=== PATIENT | female | born 1935 | race Caucasian/White ===

== ENCOUNTER 2016-09-11 12:28 | Emergency (ER) | payer OTHER ==
[~2016-09-11] VITALS: Ht 165.1 cm; Wt 69.4 kg
[~2016-09-11 12:28] MED LIST: ACETAMINOPHEN325 M1 PO; APAP500 PO; APAP650 PO; ASCORBIC ACID250 MG PO; ASPIRIN81 M2 PO; ATENOLOL 25 MG25 M1 PO; CVS FISH OIL 11 EAC3 PO; DOXYCYCLINE 10100 MG PO; FISH OIL 1,0001 EAC8 PO; FOLIC ACID 40400 MCG PO; GALZIN50 MG PO; GLUCOSAMINE &1 EAC1 PO; HYDRALAZINE 2525 MG PO; HYDROCODON-ACE1 EAC7 PO; HYDROCODON-ACE1 EAC8 PO; LOTREL 5-20 MG1 EACH PO; LUTEIN6 MG PO; LYRICA150 MG PO; LYRICA20 MG/1 ML PO; MEDROLDOSEPACK PO; MELOXICAM7.5 MG PO; MOBIC15 MG PO; NORCO 10-325 T1 EACH PO; NORCO 5-325 TA1 EACH PO; NORCO 7.5-3251 EACH PO; ODORLESS GARLI500 MG PO; OXYCODONE-ACET1 EACH PO; PERCOCET 5-3251 EACH PO; POTASSIUM20 PO; PROTONIX40 M1 PO; REGLAN 10 MG TA10 MG PO; REGLAN 5 MG TAB5 MG PO; ROBAXIN 750 MG750 M1 PO; TRAMADOL 50 MG50 MG; TRAMADOL 50 MG50 MG PO; ULTRAM 50MG TAB50 MG; ULTRAM 50MG TAB50 MG PO; VESICARE 5 MG TA5 MG PO; VITAMIN A10000 UNI3; VITAMIN B-12100 MCG PO; VITCB500GO PO
[2016-09-11] MEDS ORDERED: IBUPROFEN 600600 M1 PO (13:24)
[2016-09-11] MEDS ORDERED: NORCO 5-325 TA1 EACH PO (15:00)
[2016-09-11] MEDS ORDERED: ULTRAM 50MG TAB50 MG PO (15:35)
[2016-09-11 15:42] VITALS: BP 140/71
== END 2016-09-11 15:43 | disposition home or self-care (01) ==
LOC: ER 12:28
DX: S32.501A Unspecified fracture of right pubis, initial encounter for closed fracture (principal); I10 Essential (primary) hypertension; F03.90 Unspecified dementia, unspecified severity, without behavioral disturbance, psychotic disturbance, mood disturbance, and anxiety; G62.9 Polyneuropathy, unspecified; Z90.89 Acquired absence of other organs; Z88.2 Allergy status to sulfonamides; Z88.1 Allergy status to other antibiotic agents; X58.XXXA Exposure to other specified factors, initial encounter; Y93.89 Activity, other specified; Y92.89 Other specified places as the place of occurrence of the external cause; Y99.9 Unspecified external cause status

== ENCOUNTER 2016-09-19 19:42 | Emergency (ER) | payer OTHER ==
[~2016-09-19] VITALS: Ht 165.1 cm; Wt 69.4 kg
[~2016-09-19 19:42] MED LIST changes: +IBUPROFEN 600600 M1 PO
[2016-09-19 21:00] LABS: ABSOLUTE NEUTROPHILS 8.6 thou/uL (1.4-8.2); BASOPHILS 0.7 % (0.0-2.0); HEMATOCRIT 37.6 % (37.0-47.0); HEMOGLOBIN 13.2 gm/dL (12.0-15.0); LYMPHOCYTES 13.3 % (24.0-44.0); MANUAL DIFF NO; MCH 34.2 pg (26.0-34.0); MCV 97.7 fL (80.0-100.0); MONOCYTES 9.1 % (1.0-8.0); PLATELET COUNT 382 thou/uL (150-400); POLYS 75.9 % (36.0-66.0); RBC 3.85 mil/uL (4.20-5.00); RDW 13.7 % (10.5-14.5); WBC 11.4 thou/uL (4.0-11.0)
[2016-09-19 21:12] LABS: CALCIUM 8.8 mg/dL (8.5-10.1); CREATININE 0.9 mg/dL (0.6-1.0)
[2016-09-19 21:15] LABS: PROTIME 10.5 Seconds (9.3-11.4)
[2016-09-19] MEDS ORDERED: CLEOCIN HCL150 MG PO (21:44)
[2016-09-19] MEDS ORDERED: ULTRAM 50MG TAB50 MG PO (21:51)
[2016-09-19 22:07] VITALS: BP 148/64
== END 2016-09-19 22:08 | disposition home or self-care (01) ==
LOC: ER 19:42
PROVIDERS: Physician Assistant
DX: L03.115 Cellulitis of right lower limb (principal); K59.00 Constipation, unspecified; I10 Essential (primary) hypertension; F03.90 Unspecified dementia, unspecified severity, without behavioral disturbance, psychotic disturbance, mood disturbance, and anxiety; G62.9 Polyneuropathy, unspecified; F17.210 Nicotine dependence, cigarettes, uncomplicated; Z90.89 Acquired absence of other organs; Z88.2 Allergy status to sulfonamides; Z88.8 Allergy status to other drugs, medicaments and biological substances

== ENCOUNTER → 2017-03-31 | Outpatient (CLI) | payer OTHER ==
[~2017-03-31] MED LIST changes: +CLEOCIN HCL150 MG PO
== END ==
LOC: HYPER 07:05
DX: L89.510 Pressure ulcer of right ankle, unstageable (principal); I73.9 Peripheral vascular disease, unspecified; H26.9 Unspecified cataract; E78.5 Hyperlipidemia, unspecified; I10 Essential (primary) hypertension; K21.9 Gastro-esophageal reflux disease without esophagitis; M19.90 Unspecified osteoarthritis, unspecified site; G62.9 Polyneuropathy, unspecified; F03.90 Unspecified dementia, unspecified severity, without behavioral disturbance, psychotic disturbance, mood disturbance, and anxiety; F17.200 Nicotine dependence, unspecified, uncomplicated; Z98.49 Cataract extraction status, unspecified eye; Z96.642 Presence of left artificial hip joint; Z96.651 Presence of right artificial knee joint; Z72.89 Other problems related to lifestyle

== ENCOUNTER → 2017-04-21 | Outpatient (CLI) | payer OTHER | LOC: HYPER 07:01 | DX: L89.520 Pressure ulcer of left ankle, unstageable (principal); I73.9 Peripheral vascular disease, unspecified; L89.510 Pressure ulcer of right ankle, unstageable; E78.5 Hyperlipidemia, unspecified; I10 Essential (primary) hypertension; K21.9 Gastro-esophageal reflux disease without esophagitis; M19.90 Unspecified osteoarthritis, unspecified site; Z85.828 Personal history of other malignant neoplasm of skin; F03.90 Unspecified dementia, unspecified severity, without behavioral disturbance, psychotic disturbance, mood disturbance, and anxiety; F17.200 Nicotine dependence, unspecified, uncomplicated; Z72.89 Other problems related to lifestyle; Z96.651 Presence of right artificial knee joint; Z96.642 Presence of left artificial hip joint ==

== ENCOUNTER → 2017-05-13 | Outpatient (CLI) | payer OTHER | LOC: HYPER 06:41 | DX: L89.520 Pressure ulcer of left ankle, unstageable (principal); L89.510 Pressure ulcer of right ankle, unstageable; I73.9 Peripheral vascular disease, unspecified; I10 Essential (primary) hypertension; E78.5 Hyperlipidemia, unspecified; K21.9 Gastro-esophageal reflux disease without esophagitis; M19.90 Unspecified osteoarthritis, unspecified site; G62.9 Polyneuropathy, unspecified; F03.90 Unspecified dementia, unspecified severity, without behavioral disturbance, psychotic disturbance, mood disturbance, and anxiety; F17.200 Nicotine dependence, unspecified, uncomplicated; Z96.651 Presence of right artificial knee joint; Z72.89 Other problems related to lifestyle ==

== ENCOUNTER → 2017-06-02 | Outpatient (CLI) | payer OTHER ==
[~2017-06-02] MED LIST changes: +GARLIC1000 MG PO; +LYRICA 50 MG50 MG PO; +PLAVIX 75 MG TA75 M1 PO; +SERTRALINE HCL50 MG PO; +VITAMIN C1000 MG PO; +VITAMIN D31000 UNI2 PO
== END ==
LOC: HYPER 06:54
DX: L89.520 Pressure ulcer of left ankle, unstageable (principal); I73.9 Peripheral vascular disease, unspecified; H26.9 Unspecified cataract; E78.5 Hyperlipidemia, unspecified; I10 Essential (primary) hypertension; K21.9 Gastro-esophageal reflux disease without esophagitis; M19.90 Unspecified osteoarthritis, unspecified site; G62.9 Polyneuropathy, unspecified; F17.200 Nicotine dependence, unspecified, uncomplicated; F03.90 Unspecified dementia, unspecified severity, without behavioral disturbance, psychotic disturbance, mood disturbance, and anxiety; Z98.49 Cataract extraction status, unspecified eye; Z96.651 Presence of right artificial knee joint; Z96.642 Presence of left artificial hip joint; Z72.89 Other problems related to lifestyle

== ENCOUNTER → 2017-06-23 | Outpatient (CLI) | payer OTHER | LOC: HYPER 06:48 | DX: L89.523 Pressure ulcer of left ankle, stage 3 (principal); I73.9 Peripheral vascular disease, unspecified; E78.5 Hyperlipidemia, unspecified; I10 Essential (primary) hypertension; K21.9 Gastro-esophageal reflux disease without esophagitis; M19.90 Unspecified osteoarthritis, unspecified site; F03.90 Unspecified dementia, unspecified severity, without behavioral disturbance, psychotic disturbance, mood disturbance, and anxiety; Z85.828 Personal history of other malignant neoplasm of skin; Z72.89 Other problems related to lifestyle; F17.210 Nicotine dependence, cigarettes, uncomplicated ==

== ENCOUNTER → 2017-07-08 | Outpatient (CLI) | payer OTHER | LOC: HYPER 06:59 | DX: L89.523 Pressure ulcer of left ankle, stage 3 (principal); I73.9 Peripheral vascular disease, unspecified; E78.5 Hyperlipidemia, unspecified; I10 Essential (primary) hypertension; K21.9 Gastro-esophageal reflux disease without esophagitis; M19.90 Unspecified osteoarthritis, unspecified site; G62.9 Polyneuropathy, unspecified; F03.90 Unspecified dementia, unspecified severity, without behavioral disturbance, psychotic disturbance, mood disturbance, and anxiety; F17.210 Nicotine dependence, cigarettes, uncomplicated; Z72.89 Other problems related to lifestyle; Z96.651 Presence of right artificial knee joint ==

== ENCOUNTER → 2017-07-21 | Outpatient (CLI) | payer OTHER | LOC: MRI 11:43 | DX: S91.002A Unspecified open wound, left ankle, initial encounter (principal); S99.912A Unspecified injury of left ankle, initial encounter; R60.0 Localized edema; E87.1 Hypo-osmolality and hyponatremia; X58.XXXA Exposure to other specified factors, initial encounter; Y93.89 Activity, other specified; Y92.89 Other specified places as the place of occurrence of the external cause; Y99.8 Other external cause status ==

== ENCOUNTER → 2017-07-22 | Outpatient (CLI) | payer OTHER | LOC: HYPER 08:44 | DX: L89.523 Pressure ulcer of left ankle, stage 3 (principal); E78.5 Hyperlipidemia, unspecified; I10 Essential (primary) hypertension; K21.9 Gastro-esophageal reflux disease without esophagitis; M19.90 Unspecified osteoarthritis, unspecified site; F03.90 Unspecified dementia, unspecified severity, without behavioral disturbance, psychotic disturbance, mood disturbance, and anxiety; I73.9 Peripheral vascular disease, unspecified; F17.200 Nicotine dependence, unspecified, uncomplicated; Z72.89 Other problems related to lifestyle ==

== ENCOUNTER → 2017-08-05 | Outpatient (CLI) | payer OTHER | LOC: HYPER 06:48 | DX: L89.523 Pressure ulcer of left ankle, stage 3 (principal); I73.9 Peripheral vascular disease, unspecified; E78.5 Hyperlipidemia, unspecified; K21.9 Gastro-esophageal reflux disease without esophagitis; I10 Essential (primary) hypertension; M19.90 Unspecified osteoarthritis, unspecified site; G62.9 Polyneuropathy, unspecified; F03.90 Unspecified dementia, unspecified severity, without behavioral disturbance, psychotic disturbance, mood disturbance, and anxiety; F17.200 Nicotine dependence, unspecified, uncomplicated; Z85.828 Personal history of other malignant neoplasm of skin; Z72.89 Other problems related to lifestyle; Z96.652 Presence of left artificial knee joint; Z96.642 Presence of left artificial hip joint ==

== ENCOUNTER → 2017-08-26 | Outpatient (CLI) | payer OTHER | LOC: HYPER 07:20 | DX: L89.523 Pressure ulcer of left ankle, stage 3 (principal); I73.9 Peripheral vascular disease, unspecified; E78.5 Hyperlipidemia, unspecified; I10 Essential (primary) hypertension; K21.9 Gastro-esophageal reflux disease without esophagitis; M19.90 Unspecified osteoarthritis, unspecified site; F03.90 Unspecified dementia, unspecified severity, without behavioral disturbance, psychotic disturbance, mood disturbance, and anxiety; F17.200 Nicotine dependence, unspecified, uncomplicated ==

== ENCOUNTER → 2017-09-09 | Outpatient (CLI) | payer OTHER ==
[~2017-09-09] MED LIST changes: -GARLIC1000 MG PO; -LYRICA 50 MG50 MG PO; -PLAVIX 75 MG TA75 M1 PO; -SERTRALINE HCL50 MG PO; -VITAMIN C1000 MG PO; -VITAMIN D31000 UNI2 PO
== END ==
LOC: HYPER 06:53
DX: L89.523 Pressure ulcer of left ankle, stage 3 (principal); I73.9 Peripheral vascular disease, unspecified; E78.5 Hyperlipidemia, unspecified; I10 Essential (primary) hypertension; K21.9 Gastro-esophageal reflux disease without esophagitis; M19.90 Unspecified osteoarthritis, unspecified site; F03.90 Unspecified dementia, unspecified severity, without behavioral disturbance, psychotic disturbance, mood disturbance, and anxiety; F17.210 Nicotine dependence, cigarettes, uncomplicated

== ENCOUNTER → 2017-10-21 | Outpatient (CLI) | payer OTHER | LOC: HYPER 06:51 | DX: L89.523 Pressure ulcer of left ankle, stage 3 (principal); I73.9 Peripheral vascular disease, unspecified; E78.5 Hyperlipidemia, unspecified; I10 Essential (primary) hypertension; K21.9 Gastro-esophageal reflux disease without esophagitis; M19.90 Unspecified osteoarthritis, unspecified site; F03.90 Unspecified dementia, unspecified severity, without behavioral disturbance, psychotic disturbance, mood disturbance, and anxiety; F17.200 Nicotine dependence, unspecified, uncomplicated ==

== ENCOUNTER → 2017-11-11 | Outpatient (CLI) | payer OTHER | LOC: HYPER 06:59 | DX: L89.523 Pressure ulcer of left ankle, stage 3 (principal); I73.9 Peripheral vascular disease, unspecified; E78.5 Hyperlipidemia, unspecified; I10 Essential (primary) hypertension; K21.9 Gastro-esophageal reflux disease without esophagitis; M19.90 Unspecified osteoarthritis, unspecified site; F03.90 Unspecified dementia, unspecified severity, without behavioral disturbance, psychotic disturbance, mood disturbance, and anxiety; G62.9 Polyneuropathy, unspecified; F17.210 Nicotine dependence, cigarettes, uncomplicated ==

== ENCOUNTER → 2017-11-23 | Outpatient (CLI) | payer OTHER | LOC: HYPER 07:01 | DX: L89.523 Pressure ulcer of left ankle, stage 3 (principal); I10 Essential (primary) hypertension; I73.9 Peripheral vascular disease, unspecified; E78.5 Hyperlipidemia, unspecified; K21.9 Gastro-esophageal reflux disease without esophagitis; M19.90 Unspecified osteoarthritis, unspecified site; G62.9 Polyneuropathy, unspecified; F03.90 Unspecified dementia, unspecified severity, without behavioral disturbance, psychotic disturbance, mood disturbance, and anxiety; F17.200 Nicotine dependence, unspecified, uncomplicated; Z85.828 Personal history of other malignant neoplasm of skin; Z98.49 Cataract extraction status, unspecified eye; Z96.651 Presence of right artificial knee joint; Z96.642 Presence of left artificial hip joint ==

== ENCOUNTER → 2017-12-06 | Outpatient (CLI) | payer OTHER | LOC: HYPER 06:53 → RAD 06:53 → HYPER 09:36 | DX: L89.523 Pressure ulcer of left ankle, stage 3 (principal); I73.9 Peripheral vascular disease, unspecified ==

== ENCOUNTER → 2017-12-21 | Outpatient (CLI) | payer OTHER | LOC: HYPER 06:31 | DX: L89.523 Pressure ulcer of left ankle, stage 3 (principal); I70.245 Atherosclerosis of native arteries of left leg with ulceration of other part of foot; L97.521 Non-pressure chronic ulcer of other part of left foot limited to breakdown of skin; I10 Essential (primary) hypertension; E78.5 Hyperlipidemia, unspecified; K21.9 Gastro-esophageal reflux disease without esophagitis; M19.90 Unspecified osteoarthritis, unspecified site; G62.9 Polyneuropathy, unspecified; F03.90 Unspecified dementia, unspecified severity, without behavioral disturbance, psychotic disturbance, mood disturbance, and anxiety; F17.200 Nicotine dependence, unspecified, uncomplicated; Z98.49 Cataract extraction status, unspecified eye; Z85.828 Personal history of other malignant neoplasm of skin; Z96.651 Presence of right artificial knee joint; Z96.642 Presence of left artificial hip joint ==

== ENCOUNTER → 2017-12-27 | Outpatient (CLI) | payer OTHER | LOC: MRI 11:20 | DX: S91.002D Unspecified open wound, left ankle, subsequent encounter (principal); M65.872 Other synovitis and tenosynovitis, left ankle and foot; M19.072 Primary osteoarthritis, left ankle and foot; M76.72 Peroneal tendinitis, left leg; X58.XXXD Exposure to other specified factors, subsequent encounter ==

== ENCOUNTER 2018-01-06 05:44 | Inpatient (IN) | payer OTHER ==
[~2018-01-06] VITALS: Ht 167.6 cm; Wt 61.2 kg
--- NOTE | ~2018-01-06 | O ---
[facility] [address] OPERATIVE REPORT Name: JADA APODACA Room #: 420-P ADM IN M.R.#: [id number] Admission: 01/06/18 Attend Phys: Von Mayers MD Discharge: Date of : 33 Report #: [id number] THIS REPORT FOR: //name// CC: oVn [facility] DATE OF SERVICE: 01/06/2018 PREOPERATIVE DIAGNOSIS: Left distal fibula osteomyelitis. POSTOPERATIVE DIAGNOSIS: Left distal fibula osteomyelitis. PROCEDURE: Left distal fibula irrigation and debridement. SURGEON: Von Mayers MD ANESTHESIA: General. ESTIMATED BLOOD LOSS: Minimal. DRAINS: One Hemovac drain was placed in the wound. COMPLICATIONS: There were no complications. DESCRIPTION OF PROCEDURE: The patient brought to the operating room where she was placed under general anesthesia. Once under adequate general anesthesia, her left lower extremity was prepped and draped in sterile manner. The extremity was elevated and tourniquet placed to 300 mmHg. A 4 cm incision overlying the distal fibula was made. There was an abscess there beneath the skin and subcutaneous tissue, which was debrided and excised. The wound was irrigated copiously and the distal fibula was exposed. A sagittal saw was then used to resect the lateral border of the distal fibula leaving the CFL intact. Once complete, the wound was irrigated copiously. Prior to excising the distal fibula, the wound was cultured, the distal fibula as well, was sent to pathology and for cultures. The wound was irrigated copiously and closed over a Hemovac drain with 2-0 nylon suture in a simple stitch manner. The wound was dressed with Xeroform, 4 x 4s, and sterile soft compressive dressing was placed. Tourniquet was let down at approximately 20 minutes. Toes were pink and warm with good capillary refill. There were no complications from the procedure. The patient tolerated the procedure well and went to recovery room without incident. By: 1815 [id number] Von Mayers MD /nt
--- NOTE | ~2018-01-06 | EKG ---
[address] [address] ELECTROCARDIOGRAM REPORT Name: JADA APODACA Room #: 150-12 ADM IN M.R.#: [id number] Admission: 01/06/18 Attend Phys: Von Mayers MD Discharge: Date of : 33 Report #: [id number] THIS REPORT FOR: //name// [facility] Test Date: 2018-01-06 Test Time: 11:10:18 Pat Name: JADA APODACA Department: Room: 150 12 Gender: F Transporter Radiology: ARIADNE : 1935 Requested By: Von Mayers Order Number: [id number] MD: Lv Ho Measurements Intervals [place] Rate: 66 P: 40 HI: 213 QRS: -48 QRSD: 87 T: -2 QT: 437 QTc: 458 Interpretive Statements Sinus rhythm Borderline prolonged HI interval Left ventricular hypertrophy Inferior infarct, old Compared to ECG 09/21/2015 20:32:59 Ventricular premature complex(es) no longer present Electronically Signed On 01-06-2018 16:53:37 CDT by Lv Ho [email or web address] <ELECTRONICALLY SIGNED> By: Lv Ho MD, FACC 01/06/18 1653 1110 1110 Lv Ho MD, [facility] /EPI
--- NOTE | ~2018-01-06 | HC ---
[facility] [place] [address] CONSULTATION Name: JADA APODACA Room #: 420-P [facility] IN M.R.#: [id number] Admission: 01/06/18 Attend Phys: Von Mayers MD Discharge: 01/08/18 Date of : 33 Report #: [id number] THIS REPORT FOR: //name// CC: Von Frausto Banner DATE OF SERVICE: 01/07/2018 REASON FOR CONSULTATION: Evaluation concerning left fibular osteomyelitis. HISTORY OF PRESENT ILLNESS: The patient is an 82-year-old with history of peripheral vascular disease. She had broken her pelvis earlier this year and developed a pressure wound over the lateral ankle. This failed to heal despite stenting for revascularization. A recent MRI scan showed evidence of a soft tissue fluid collection in the region of her left fibula. She was taken to surgery yesterday where she underwent debridement and irrigation. The lateral border of the distal fibula was resected. Cultures were sent. Pathology was sent. She is now on vancomycin. No fever, chills or sweats. She has some peripheral neuropathy. No significant pain in the ankle. She has underlying degenerative arthritis. No other trauma noted. ALLERGIES: SULFA WITH RASH, CEPHALEXIN WITH RASH, although does tolerate penicillins. MEDICATIONS: As noted on her MAR including vancomycin. She has had no recent cephalosporins. Within the last month, she has had an oral antibiotic for urinary tract infection. PAST MEDICAL HISTORY: Hypertension, peripheral neuropathy, gastroparesis, tobacco use, mild dementia. PAST SURGICAL HISTORY: Appendectomy, right total knee arthroplasty, right breast lumpectomy with radiation for cancer of the breast. Left hip arthroplasty, lumbar laminectomy, bilateral cataract surgery with implants, colonoscopy. FAMILY HISTORY: Noncontributory. SOCIAL HISTORY: One pack a day smoker of cigarettes, daily alcohol use. Lives alone. Has supportive family. REVIEW OF SYSTEMS: CONSTITUTIONAL: No weight gain or weight loss. No fever, chills or sweats. Mood negative. [facility] [address] [place] [address] CONSULTATION Name: JADA APODACA Room #: [address] [place] [address] IN M.R.#: [id number] Admission: 01/06/18 Attend Phys: Von Mayers MD Discharge: 01/08/18 Date of : 33 Report #: [id number] NEUROLOGIC: As above. HEENT: Negative. ENDOCRINE: Negative. CARDIOVASCULAR: Negative. PULMONARY: Negative. GASTROINTESTINAL: As above with gastroparesis, controlled. GENITOURINARY: Indwelling Diaz catheter. Otherwise, negative joint as above. PHYSICAL EXAMINATION: VITAL SIGNS: Afebrile and hemodynamically stable. GENERAL: Sitting up in her chair. No distress. HEENT: Pupils equal, round and reactive to light. No scleral icterus. Mouth without lesion. NECK: Supple, with no thyromegaly or mass. CHEST: Clear with no adventitial sounds. HEART: Regular, without murmur, gallop or rub. EXTREMITIES: Distal pulses normal. Capillary refill in the left foot, normal. Unable to check pulses in the left foot due to her Arash wrap. ABDOMEN: Soft, nontender, no hepatosplenomegaly or mass. EXTREMITIES: With Arash wrap on the left. No strike through. Degenerative arthritis changes to her hands and feet. NEUROLOGIC: Strength normal throughout. Cranial nerves intact. PSYCHIATRIC: Without anxiety or depression. SKIN: Several ecchymoses, otherwise unremarkable. LYMPHATIC: No palpable adenopathy noted. EXTERNAL GENITALIA: Unremarkable with indwelling Diaz catheter. RECTAL: Not performed. LABORATORY STUDIES: Hemoglobin 12, WBC 11. Sedimentation rate 12, creatinine 0.9. Liver function test normal. MRI scan noted and reviewed. Cultures pending. IMPRESSION: 1. Left fibula osteomyelitis with soft tissue abscess, cultures pending. 2. Hypertension. 3. Peripheral vascular disease. 4. Peripheral neuropathy. 5. Degenerative arthritis. 6. Gastroparesis. 7. Tobacco use. RECOMMENDATION: We will continue with outpatient IV antibiotic therapy, pending final culture results. We will plan on daptomycin for daily infusion pending further laboratory data. I have discussed with social work case manager and the patient's granddaughter, who is a nurse. We will then arrange outpatient followup in 1 week. She will need a PICC catheter placed. We will monitor [address] [address] CONSULTATION Name: JADA APODACA Room #: 420-P [facility] IN M.R.#: [id number] Admission: 01/06/18 Attend Phys: Von Mayers MD Discharge: 01/08/18 Date of : 33 Report #: [id number] laboratory studies on a weekly basis. Make adjustments pending cultures. Anticipate 6 weeks of IV therapy. <ELECTRONICALLY SIGNED> By: Blake Simpson MD 01/10/1808 1232 54 Blake Simpson MD /nt
--- NOTE | ~2018-01-06 | PATH ---
[facility] [place] [address] PATHOLOGY RPT PROCEDURE Name: RENETTA APODACA Room #: 420-P DIS IN M.R.#: [id number] Admission: 01/06/18 Date of : 33 Discharge: 01/08/18 Report #: [id number] Path Case #: [id number] [facility] Accession Number: [id number] . 01 Material submitted: . LEFT ANKLE TISSUE . 01 Clinical history: . Left distal fib osteomyelitis. . 02 Diagnosis: Bone and soft tissue, left ankle tissue, debridement: - Fragments of reactive and remodeled osseous tissue associated with acute inflammation as well as necrosis, compatible with changes of osteomyelitis. - Focal synovial-type tissue present associated with mild chronic inflammation comprised of lymphocytes as well as reactive changes. (IUV/db; 01/07/18) LBQ/01/07/2018 . 02 Electronically signed: . Tash U Vadlamani, MD, Pathologist NPI- [id number] . 01 Gross description: . Received in formalin labeled "Renetta Apodaca, left ankle tissue" is a specimen consisting of two portions of andrews-white bone and attached andrews-white membranous tissue measuring 2.5 x 1.3 x 0.6 cm and 3.2 x 1.4 x 0.7 cm. [employer] sections of the specimen are submitted in cassette A1 following decalcification. ([facility]; 01/06/2018) [facility] . 02 Pathologist provided ICD-10: M86.172, M65.872 . 02 CPT . 867446, 334776 Performed at: [address], [place] [id number] MD Hamlet Stovall MD Phone: [phone] Performed at: [address] [id number] MD Tash De La Garaz MD Phone: [phone]
[~2018-01-06 05:44] MED LIST changes: +GARLIC1000 MG PO; +LYRICA 50 MG50 MG PO; +PLAVIX 75 MG TA75 M1 PO; +SERTRALINE HCL50 MG PO; +VITAMIN C1000 MG PO; +VITAMIN D31000 UNI2 PO
[2018-01-06 14:15] VITALS: BP 115/73
[2018-01-06 18:36] VITALS: BP 138/75
[2018-01-06 19:48] VITALS: BP 140/68
[2018-01-06 23:17] LABS: HEMATOCRIT 36.8 % (37.0-47.0); HEMOGLOBIN 12.7 gm/dL (12.0-15.0); MCH 32.6 pg (26.0-34.0); MCHC 34.4 g/dL (28.0-37.0); MCV 94.7 fL (80.0-100.0); RBC 3.89 mil/uL (4.20-5.00); RDW 14.2 % (10.5-14.5); WBC 11.3 thou/uL (4.0-11.0)
[2018-01-06 23:28] LABS: ALBUMIN 3.5 g/dL (3.4-5.0); CALCIUM 9.1 mg/dL (8.5-10.1); CREATININE 0.9 mg/dL (0.6-1.0); POTASSIUM 3.9 mmol/L (3.5-5.1); TOTAL BILIRUBIN 0.4 mg/dL (<0.1-1.0); TOTAL PROTEIN 7.3 g/dL (6.4-8.2)
[2018-01-07 04:02] VITALS: BP 148/57
[2018-01-07 06:07] LABS: HEMATOCRIT 36.1 % (37.0-47.0); HEMOGLOBIN 12.4 gm/dL (12.0-15.0)
[2018-01-07 06:12] LABS: POTASSIUM 4.2 mmol/L (3.5-5.1)
[2018-01-07 08:46] VITALS: BP 137/69
[2018-01-07 17:13] VITALS: BP 137/69
[2018-01-07 17:15] VITALS: BP 137/69
[2018-01-07 18:14] VITALS: BP 124/68
[2018-01-07 20:20] VITALS: BP 134/61
[2018-01-08 05:12] VITALS: BP 145/76
[2018-01-08 05:49] LABS: ALBUMIN 3.4 g/dL (3.4-5.0); CALCIUM 9.2 mg/dL (8.5-10.1); CREATININE 0.9 mg/dL (0.6-1.0); MAGNESIUM 1.5 mg/dL (1.8-2.4); POTASSIUM 3.7 mmol/L (3.5-5.1); TOTAL BILIRUBIN 0.5 mg/dL (<0.1-1.0)
[2018-01-08 07:02] LABS: TSH 2.091 uIU/mL (0.358-3.740)
[2018-01-08 07:24] VITALS: BP 157/67
[2018-01-08 08:59] VITALS: BP 157/67
[2018-01-08 11:04] VITALS: BP 137/69
[2018-01-08 12:34] VITALS: BP 137/69
[2018-01-08 14:18] VITALS: BP 137/69
== END 2018-01-08 18:30 | disposition home health service (06) | DRG 464 ==
LOC: TBA 05:44 → 4E 05:44 → PRE 08:12 → 4E 18:32
PROVIDERS: Internal Medicine Geriatric Medicine; Orthopaedic Surgery Foot and Ankle Surgery; Specialist
DX: M86.8X7 Other osteomyelitis, ankle and foot (principal); L02.416 Cutaneous abscess of left lower limb; E87.1 Hypo-osmolality and hyponatremia; F03.90 Unspecified dementia, unspecified severity, without behavioral disturbance, psychotic disturbance, mood disturbance, and anxiety; I10 Essential (primary) hypertension; I73.9 Peripheral vascular disease, unspecified; G62.9 Polyneuropathy, unspecified; M19.90 Unspecified osteoarthritis, unspecified site; K31.84 Gastroparesis; E78.5 Hyperlipidemia, unspecified; F32.9 Major depressive disorder, single episode, unspecified; Z96.651 Presence of right artificial knee joint; Z96.642 Presence of left artificial hip joint; Z96.1 Presence of intraocular lens; F17.210 Nicotine dependence, cigarettes, uncomplicated; Z90.49 Acquired absence of other specified parts of digestive tract; Z85.3 Personal history of malignant neoplasm of breast; Z71.6 Tobacco abuse counseling; Z92.3 Personal history of irradiation; Z98.42 Cataract extraction status, left eye; Z98.41 Cataract extraction status, right eye; Z88.2 Allergy status to sulfonamides; Z88.8 Allergy status to other drugs, medicaments and biological substances
CPT/HCPCS: 10783; 27000; 50010; 50101; 50386; 50951; 56525; 57091; 62110; 62900; 70005

== ENCOUNTER → 2018-01-11 | Outpatient (CLI) | payer OTHER | LOC: OPONC 10:11 | DX: M86.9 Osteomyelitis, unspecified (principal) | CPT/HCPCS: 27000 ==

== ENCOUNTER → 2018-03-01 | Outpatient (CLI) | payer OTHER | LOC: HYPER 07:07 | DX: T81.31XD Disruption of external operation (surgical) wound, not elsewhere classified, subsequent encounter (principal); L89.523 Pressure ulcer of left ankle, stage 3; I70.243 Atherosclerosis of native arteries of left leg with ulceration of ankle; L97.321 Non-pressure chronic ulcer of left ankle limited to breakdown of skin; M86.8X8 Other osteomyelitis, other site; B95.62 Methicillin resistant Staphylococcus aureus infection as the cause of diseases classified elsewhere; E78.5 Hyperlipidemia, unspecified; G62.9 Polyneuropathy, unspecified; I10 Essential (primary) hypertension; J98.4 Other disorders of lung; K21.9 Gastro-esophageal reflux disease without esophagitis; M19.90 Unspecified osteoarthritis, unspecified site; F03.90 Unspecified dementia, unspecified severity, without behavioral disturbance, psychotic disturbance, mood disturbance, and anxiety; F17.200 Nicotine dependence, unspecified, uncomplicated; F41.9 Anxiety disorder, unspecified; Z85.9 Personal history of malignant neoplasm, unspecified; Y83.8 Other surgical procedures as the cause of abnormal reaction of the patient, or of later complication, without mention of misadventure at the time of the procedure ==

== ENCOUNTER → 2018-03-10 | Outpatient (CLI) | payer OTHER ==
[~2018-03-10] VITALS: Ht 165.1 cm; Wt 58.5 kg
[2018-03-10] VITALS (8 sets, daily range): BP systolic 126–178; BP diastolic 61–91
--- NOTE | ~2018-03-10 | PATH ---
[facility] [address] [place] [address] PATHOLOGY RPT PROCEDURE Name: PAULIERENETTALUIS HATCH Room #: REG CARLA Dudley#: [id number] Admission: 03/10/18 Date of : 34 Discharge: Report #: [id number] Path Case #: [id number] [facility] Accession Number: [id number] . 01 Material submitted: . RIGHT UPPER LUNG MASS . 01 Clinical history: . Right upper lung mass with positive PET scan . 02 Diagnosis: Lung, right upper lung mass, CT-guided needle core biopsy: - ISLANDS OF SQUAMOUS EPITHELIUM SHOWING MARKED DYSPLASIA/HIGH-GRADE DYSPLASIA, HIGHLY SUSPICIOUS FOR SQUAMOUS CELL CARCINOMA (PLEASE SEE COMMENT). - BACKGROUND LUNG TISSUE SHOWING EXTENSIVE FIBROSIS WELL INFLAMMATORY RESPONSE. (IUV:quique; 03/11/2018) QMS/03/11/2018 . 02 Comment: Examination shows islands of squamous epithelium with marked squamous dysplasia or high-grade dysplasia. Focal irregular clusters of cells surrounded by subtle desmoplastic response are identified raising concern for an invasive moderately differentiated squamous cell carcinoma. The provided history of a PET positive lung lesion is noted. . Co-review: Dr. Rekha West . . Findings are telephoned to Dr. Francie Pfeiffer's nurse, at 2:15 p.m. on 03/11/2018. . . (IUV:quique; 03/11/2018) . 02 Electronically signed: . Tash De La Garza MD, Pathologist NPI- [id number] . 01 Gross description: . The specimen is received in formalin, labeled "Renetta Apodaca, right lung mass", are several andrews-key needle cores measuring 1.0 x 0.3 x 0.1 cm in aggregate. The specimen is entirely submitted in A1-A3. ([facility]; 03/10/2018) [facility] . [address] [address] PATHOLOGY RPT PROCEDURE Name: RENETTA APODACA Room #: REG [facility]#: [id number] Admission: 03/10/18 Date of : 33 Discharge: Report #: [id number] Path Case #: [id number] Pathologist provided ICD-10: J98.4, J84.10, R91.8 . 02 CPT . 950332 Specimen Comment: A courtesy copy of this report has been sent to Specimen Comment: [phone]. Specimen Comment: Report sent to Performed at: [address] [facility], [place], [place] [id number] MD Hamlet Stovall MD Phone: [phone] Performed at: [address] [facility] [id number] MD Tash De La Garza MD Phone: [phone]
[2018-03-10 09:18] LABS: HEMATOCRIT 36.6 % (37.0-47.0); HEMOGLOBIN 12.7 gm/dL (12.0-15.0); MCH 33.6 pg (26.0-34.0); MCHC 34.6 g/dL (28.0-37.0); MCV 97.1 fL (80.0-100.0); RBC 3.77 mil/uL (4.20-5.00); RDW 16.5 % (10.5-14.5); WBC 8.2 thou/uL (4.0-11.0)
[2018-03-10 09:25] LABS: CALCIUM 9.5 mg/dL (8.5-10.1); POTASSIUM 3.8 mmol/L (3.5-5.1)
[2018-03-10 09:30] LABS: PROTIME 10.3 Seconds (9.3-11.4)
== END | disposition home or self-care (01) ==
LOC: CAT 08:13
PROVIDERS: Radiology Diagnostic Radiology
DX: J98.4 Other disorders of lung (principal); J84.10 Pulmonary fibrosis, unspecified; I10 Essential (primary) hypertension; E78.5 Hyperlipidemia, unspecified; I73.9 Peripheral vascular disease, unspecified; K21.9 Gastro-esophageal reflux disease without esophagitis; F17.210 Nicotine dependence, cigarettes, uncomplicated; F32.9 Major depressive disorder, single episode, unspecified; F41.9 Anxiety disorder, unspecified; Z85.3 Personal history of malignant neoplasm of breast; Z98.41 Cataract extraction status, right eye; Z98.42 Cataract extraction status, left eye; Z96.1 Presence of intraocular lens; Z98.890 Other specified postprocedural states; Z96.651 Presence of right artificial knee joint; Z96.642 Presence of left artificial hip joint; Z79.899 Other long term (current) drug therapy; Z88.2 Allergy status to sulfonamides; Z88.8 Allergy status to other drugs, medicaments and biological substances

== ENCOUNTER → 2018-03-15 | Outpatient (CLI) | payer OTHER | LOC: HYPER 06:58 | DX: T81.31XD Disruption of external operation (surgical) wound, not elsewhere classified, subsequent encounter (principal); I70.245 Atherosclerosis of native arteries of left leg with ulceration of other part of foot; L97.521 Non-pressure chronic ulcer of other part of left foot limited to breakdown of skin; L89.523 Pressure ulcer of left ankle, stage 3; I10 Essential (primary) hypertension; M86.9 Osteomyelitis, unspecified; M19.90 Unspecified osteoarthritis, unspecified site; E78.5 Hyperlipidemia, unspecified; K21.9 Gastro-esophageal reflux disease without esophagitis; G62.9 Polyneuropathy, unspecified; B95.62 Methicillin resistant Staphylococcus aureus infection as the cause of diseases classified elsewhere; J98.4 Other disorders of lung; F17.200 Nicotine dependence, unspecified, uncomplicated; F03.90 Unspecified dementia, unspecified severity, without behavioral disturbance, psychotic disturbance, mood disturbance, and anxiety; F41.9 Anxiety disorder, unspecified; Z85.828 Personal history of other malignant neoplasm of skin; Z22.322 Carrier or suspected carrier of Methicillin resistant Staphylococcus aureus; Y83.8 Other surgical procedures as the cause of abnormal reaction of the patient, or of later complication, without mention of misadventure at the time of the procedure ==

== ENCOUNTER → 2018-03-29 | Outpatient (CLI) | payer OTHER | LOC: HYPER 06:51 | DX: T81.31XD Disruption of external operation (surgical) wound, not elsewhere classified, subsequent encounter (principal); L89.523 Pressure ulcer of left ankle, stage 3; I70.245 Atherosclerosis of native arteries of left leg with ulceration of other part of foot; B95.62 Methicillin resistant Staphylococcus aureus infection as the cause of diseases classified elsewhere; E78.5 Hyperlipidemia, unspecified; G62.9 Polyneuropathy, unspecified; I10 Essential (primary) hypertension; J98.4 Other disorders of lung; K21.9 Gastro-esophageal reflux disease without esophagitis; M86.9 Osteomyelitis, unspecified; M19.90 Unspecified osteoarthritis, unspecified site; F17.200 Nicotine dependence, unspecified, uncomplicated; F03.90 Unspecified dementia, unspecified severity, without behavioral disturbance, psychotic disturbance, mood disturbance, and anxiety; F41.9 Anxiety disorder, unspecified; Y83.8 Other surgical procedures as the cause of abnormal reaction of the patient, or of later complication, without mention of misadventure at the time of the procedure ==

== ENCOUNTER → 2018-04-18 | Outpatient (CLI) | payer OTHER | LOC: HYPER 07:11 | DX: T81.31XD Disruption of external operation (surgical) wound, not elsewhere classified, subsequent encounter (principal); I70.243 Atherosclerosis of native arteries of left leg with ulceration of ankle; L89.523 Pressure ulcer of left ankle, stage 3; L97.321 Non-pressure chronic ulcer of left ankle limited to breakdown of skin; B95.62 Methicillin resistant Staphylococcus aureus infection as the cause of diseases classified elsewhere; E78.5 Hyperlipidemia, unspecified; G62.9 Polyneuropathy, unspecified; I10 Essential (primary) hypertension; J98.4 Other disorders of lung; K21.9 Gastro-esophageal reflux disease without esophagitis; M86.9 Osteomyelitis, unspecified; M19.90 Unspecified osteoarthritis, unspecified site; F03.90 Unspecified dementia, unspecified severity, without behavioral disturbance, psychotic disturbance, mood disturbance, and anxiety; F17.200 Nicotine dependence, unspecified, uncomplicated; F41.9 Anxiety disorder, unspecified; Z85.89 Personal history of malignant neoplasm of other organs and systems; Y83.8 Other surgical procedures as the cause of abnormal reaction of the patient, or of later complication, without mention of misadventure at the time of the procedure ==

== ENCOUNTER → 2018-05-11 | Outpatient (CLI) | payer OTHER | LOC: HYPER 07:03 | DX: T81.31XD Disruption of external operation (surgical) wound, not elsewhere classified, subsequent encounter (principal); I70.243 Atherosclerosis of native arteries of left leg with ulceration of ankle; L89.523 Pressure ulcer of left ankle, stage 3; L97.321 Non-pressure chronic ulcer of left ankle limited to breakdown of skin; L84 Corns and callosities; B95.62 Methicillin resistant Staphylococcus aureus infection as the cause of diseases classified elsewhere; E78.5 Hyperlipidemia, unspecified; G62.9 Polyneuropathy, unspecified; I10 Essential (primary) hypertension; J98.4 Other disorders of lung; K21.9 Gastro-esophageal reflux disease without esophagitis; M19.90 Unspecified osteoarthritis, unspecified site; M86.9 Osteomyelitis, unspecified; F17.200 Nicotine dependence, unspecified, uncomplicated; F03.90 Unspecified dementia, unspecified severity, without behavioral disturbance, psychotic disturbance, mood disturbance, and anxiety; F41.9 Anxiety disorder, unspecified; Z85.89 Personal history of malignant neoplasm of other organs and systems; Y83.8 Other surgical procedures as the cause of abnormal reaction of the patient, or of later complication, without mention of misadventure at the time of the procedure ==

== ENCOUNTER → 2018-06-08 | Outpatient (CLI) | payer OTHER | LOC: HYPER 06:35 → RAD 12:01 → HYPER 12:01 | DX: R91.8 Other nonspecific abnormal finding of lung field (principal) ==

== ENCOUNTER → 2018-06-24 | Outpatient (CLI) | payer OTHER | LOC: RAD 08:56 | DX: S92.351A Displaced fracture of fifth metatarsal bone, right foot, initial encounter for closed fracture (principal); M19.071 Primary osteoarthritis, right ankle and foot; X58.XXXA Exposure to other specified factors, initial encounter; Y93.89 Activity, other specified; Y92.89 Other specified places as the place of occurrence of the external cause; Y99.8 Other external cause status ==

== ENCOUNTER → 2019-03-13 | Outpatient (CLI) | payer OTHER ==
[~2019-03-13] VITALS: Ht 165.1 cm; Wt 52.2 kg
[~2019-03-13] MED LIST changes: +ASA81BEC PO; +B-125000 MC1 PO; +LIPITOR 20 MG T20 M1 PO; +MAGNESIUM250 M1 PO; +NORVASC5 M1 PO; +PROAIR HFA8.5 GM INH
[2019-03-13 07:32] VITALS: BP 143/82
== END | disposition home or self-care (01) ==
LOC: CATH 07:05
DX: I70.211 Atherosclerosis of native arteries of extremities with intermittent claudication, right leg (principal); I70.1 Atherosclerosis of renal artery; I10 Essential (primary) hypertension; I25.10 Atherosclerotic heart disease of native coronary artery without angina pectoris; M19.90 Unspecified osteoarthritis, unspecified site; E78.5 Hyperlipidemia, unspecified; F17.210 Nicotine dependence, cigarettes, uncomplicated; Z86.73 Personal history of transient ischemic attack (TIA), and cerebral infarction without residual deficits; Z85.3 Personal history of malignant neoplasm of breast; Z98.890 Other specified postprocedural states; Z79.899 Other long term (current) drug therapy

== ENCOUNTER → 2019-06-20 | Outpatient (CLI) | payer OTHER | LOC: SJCVCIMAG 07:52 | DX: I70.203 Unspecified atherosclerosis of native arteries of extremities, bilateral legs (principal); E78.00 Pure hypercholesterolemia, unspecified ==

== ENCOUNTER → 2019-09-26 | Outpatient (CLI) | payer OTHER | LOC: HYPER 12:57 | DX: T81.31XD Disruption of external operation (surgical) wound, not elsewhere classified, subsequent encounter (principal); I70.245 Atherosclerosis of native arteries of left leg with ulceration of other part of foot; L97.522 Non-pressure chronic ulcer of other part of left foot with fat layer exposed; I70.243 Atherosclerosis of native arteries of left leg with ulceration of ankle; L89.523 Pressure ulcer of left ankle, stage 3; L97.321 Non-pressure chronic ulcer of left ankle limited to breakdown of skin; S81.801D Unspecified open wound, right lower leg, subsequent encounter; M86.9 Osteomyelitis, unspecified; G62.9 Polyneuropathy, unspecified; J98.4 Other disorders of lung; M19.90 Unspecified osteoarthritis, unspecified site; F41.9 Anxiety disorder, unspecified; H26.9 Unspecified cataract; E78.5 Hyperlipidemia, unspecified; I10 Essential (primary) hypertension; K21.9 Gastro-esophageal reflux disease without esophagitis; F03.90 Unspecified dementia, unspecified severity, without behavioral disturbance, psychotic disturbance, mood disturbance, and anxiety; F17.200 Nicotine dependence, unspecified, uncomplicated; Z85.828 Personal history of other malignant neoplasm of skin; Z79.82 Long term (current) use of aspirin; Z98.49 Cataract extraction status, unspecified eye; Z90.49 Acquired absence of other specified parts of digestive tract; Z96.651 Presence of right artificial knee joint; Z96.642 Presence of left artificial hip joint; Y83.8 Other surgical procedures as the cause of abnormal reaction of the patient, or of later complication, without mention of misadventure at the time of the procedure ==

== ENCOUNTER → 2019-10-03 | Outpatient (CLI) | payer OTHER | LOC: HYPER 09:27 | DX: T81.31XD Disruption of external operation (surgical) wound, not elsewhere classified, subsequent encounter (principal); L89.523 Pressure ulcer of left ankle, stage 3; I70.245 Atherosclerosis of native arteries of left leg with ulceration of other part of foot; L97.521 Non-pressure chronic ulcer of other part of left foot limited to breakdown of skin; S81.801D Unspecified open wound, right lower leg, subsequent encounter; L84 Corns and callosities; E78.5 Hyperlipidemia, unspecified; G62.9 Polyneuropathy, unspecified; H26.9 Unspecified cataract; I10 Essential (primary) hypertension; J98.4 Other disorders of lung; K21.9 Gastro-esophageal reflux disease without esophagitis; M86.9 Osteomyelitis, unspecified; M19.90 Unspecified osteoarthritis, unspecified site; F17.200 Nicotine dependence, unspecified, uncomplicated; F03.90 Unspecified dementia, unspecified severity, without behavioral disturbance, psychotic disturbance, mood disturbance, and anxiety; F41.9 Anxiety disorder, unspecified; Z85.89 Personal history of malignant neoplasm of other organs and systems; X58.XXXD Exposure to other specified factors, subsequent encounter; Y83.8 Other surgical procedures as the cause of abnormal reaction of the patient, or of later complication, without mention of misadventure at the time of the procedure ==

== ENCOUNTER → 2019-10-26 | Outpatient (CLI) | payer OTHER | LOC: HYPER 09:18 | DX: T81.31XD Disruption of external operation (surgical) wound, not elsewhere classified, subsequent encounter (principal); S91.105D Unspecified open wound of left lesser toe(s) without damage to nail, subsequent encounter; L89.523 Pressure ulcer of left ankle, stage 3; I70.245 Atherosclerosis of native arteries of left leg with ulceration of other part of foot; L97.521 Non-pressure chronic ulcer of other part of left foot limited to breakdown of skin; L84 Corns and callosities; E78.5 Hyperlipidemia, unspecified; G62.9 Polyneuropathy, unspecified; I10 Essential (primary) hypertension; J98.4 Other disorders of lung; K21.9 Gastro-esophageal reflux disease without esophagitis; M86.9 Osteomyelitis, unspecified; M19.90 Unspecified osteoarthritis, unspecified site; F03.90 Unspecified dementia, unspecified severity, without behavioral disturbance, psychotic disturbance, mood disturbance, and anxiety; F17.200 Nicotine dependence, unspecified, uncomplicated; F41.9 Anxiety disorder, unspecified; Z85.89 Personal history of malignant neoplasm of other organs and systems; X58.XXXD Exposure to other specified factors, subsequent encounter; Y83.8 Other surgical procedures as the cause of abnormal reaction of the patient, or of later complication, without mention of misadventure at the time of the procedure ==

== ENCOUNTER → 2019-11-16 | Outpatient (CLI) | payer OTHER | LOC: HYPER 09:19 | PROVIDERS: ATTEND Emergency Medicine | DX: T81.31XD Disruption of external operation (surgical) wound, not elsewhere classified, subsequent encounter (principal); I70.243 Atherosclerosis of native arteries of left leg with ulceration of ankle; L89.523 Pressure ulcer of left ankle, stage 3; L97.321 Non-pressure chronic ulcer of left ankle limited to breakdown of skin; I70.245 Atherosclerosis of native arteries of left leg with ulceration of other part of foot; L97.521 Non-pressure chronic ulcer of other part of left foot limited to breakdown of skin; S81.801D Unspecified open wound, right lower leg, subsequent encounter; M86.9 Osteomyelitis, unspecified; L84 Corns and callosities; H26.9 Unspecified cataract; E78.5 Hyperlipidemia, unspecified; I10 Essential (primary) hypertension; K21.9 Gastro-esophageal reflux disease without esophagitis; M19.90 Unspecified osteoarthritis, unspecified site; G62.9 Polyneuropathy, unspecified; F41.9 Anxiety disorder, unspecified; F03.90 Unspecified dementia, unspecified severity, without behavioral disturbance, psychotic disturbance, mood disturbance, and anxiety; F17.200 Nicotine dependence, unspecified, uncomplicated; Z85.89 Personal history of malignant neoplasm of other organs and systems; Z79.82 Long term (current) use of aspirin; X58.XXXD Exposure to other specified factors, subsequent encounter; Y83.8 Other surgical procedures as the cause of abnormal reaction of the patient, or of later complication, without mention of misadventure at the time of the procedure ==

== ENCOUNTER → 2019-12-19 | Outpatient (CLI) | payer OTHER | LOC: HYPER 09:32 | PROVIDERS: ATTEND Emergency Medicine | DX: T81.31XD Disruption of external operation (surgical) wound, not elsewhere classified, subsequent encounter (principal); S50.11XA Contusion of right forearm, initial encounter; I70.243 Atherosclerosis of native arteries of left leg with ulceration of ankle; L89.523 Pressure ulcer of left ankle, stage 3; L97.321 Non-pressure chronic ulcer of left ankle limited to breakdown of skin; S81.801D Unspecified open wound, right lower leg, subsequent encounter; I70.245 Atherosclerosis of native arteries of left leg with ulceration of other part of foot; L97.521 Non-pressure chronic ulcer of other part of left foot limited to breakdown of skin; S91.105D Unspecified open wound of left lesser toe(s) without damage to nail, subsequent encounter; M86.9 Osteomyelitis, unspecified; L84 Corns and callosities; G62.9 Polyneuropathy, unspecified; J98.4 Other disorders of lung; M19.90 Unspecified osteoarthritis, unspecified site; M79.672 Pain in left foot; H26.9 Unspecified cataract; E78.5 Hyperlipidemia, unspecified; I10 Essential (primary) hypertension; K21.9 Gastro-esophageal reflux disease without esophagitis; F41.9 Anxiety disorder, unspecified; F03.90 Unspecified dementia, unspecified severity, without behavioral disturbance, psychotic disturbance, mood disturbance, and anxiety; F17.200 Nicotine dependence, unspecified, uncomplicated; Z85.89 Personal history of malignant neoplasm of other organs and systems; X58.XXXA Exposure to other specified factors, initial encounter; X58.XXXD Exposure to other specified factors, subsequent encounter; Y83.8 Other surgical procedures as the cause of abnormal reaction of the patient, or of later complication, without mention of misadventure at the time of the procedure; Y93.89 Activity, other specified; Y92.89 Other specified places as the place of occurrence of the external cause; Y99.8 Other external cause status ==

== ENCOUNTER → 2020-01-03 | Outpatient (CLI) | payer OTHER | LOC: HYPER 10:08 | PROVIDERS: ATTEND Emergency Medicine | DX: T81.31XD Disruption of external operation (surgical) wound, not elsewhere classified, subsequent encounter (principal); L98.492 Non-pressure chronic ulcer of skin of other sites with fat layer exposed; S90.112A Contusion of left great toe without damage to nail, initial encounter; S50.11XD Contusion of right forearm, subsequent encounter; S81.801D Unspecified open wound, right lower leg, subsequent encounter; S91.105D Unspecified open wound of left lesser toe(s) without damage to nail, subsequent encounter; I70.245 Atherosclerosis of native arteries of left leg with ulceration of other part of foot; L97.521 Non-pressure chronic ulcer of other part of left foot limited to breakdown of skin; I70.243 Atherosclerosis of native arteries of left leg with ulceration of ankle; L89.523 Pressure ulcer of left ankle, stage 3; L97.321 Non-pressure chronic ulcer of left ankle limited to breakdown of skin; L84 Corns and callosities; G62.9 Polyneuropathy, unspecified; M86.9 Osteomyelitis, unspecified; J98.4 Other disorders of lung; M19.90 Unspecified osteoarthritis, unspecified site; M79.672 Pain in left foot; H26.9 Unspecified cataract; E78.5 Hyperlipidemia, unspecified; I10 Essential (primary) hypertension; K21.9 Gastro-esophageal reflux disease without esophagitis; F41.9 Anxiety disorder, unspecified; F03.90 Unspecified dementia, unspecified severity, without behavioral disturbance, psychotic disturbance, mood disturbance, and anxiety; F17.200 Nicotine dependence, unspecified, uncomplicated; Z85.89 Personal history of malignant neoplasm of other organs and systems; Z79.82 Long term (current) use of aspirin; X58.XXXD Exposure to other specified factors, subsequent encounter; X58.XXXA Exposure to other specified factors, initial encounter; Y83.8 Other surgical procedures as the cause of abnormal reaction of the patient, or of later complication, without mention of misadventure at the time of the procedure; Y93.89 Activity, other specified; Y92.89 Other specified places as the place of occurrence of the external cause; Y99.8 Other external cause status ==

== ENCOUNTER → 2020-02-13 | Outpatient (CLI) | payer OTHER | LOC: RAD 11:20 | PROVIDERS: ATTEND Family Medicine | DX: J98.4 Other disorders of lung (principal); R91.1 Solitary pulmonary nodule ==

== ENCOUNTER → 2020-05-15 | Outpatient (CLI) | payer OTHER | LOC: RAD 12:54 | PROVIDERS: ATTEND Family Medicine | DX: M47.816 Spondylosis without myelopathy or radiculopathy, lumbar region (principal); M48.061 Spinal stenosis, lumbar region without neurogenic claudication; R91.8 Other nonspecific abnormal finding of lung field; G89.29 Other chronic pain; M19.012 Primary osteoarthritis, left shoulder; M25.78 Osteophyte, vertebrae ==